=== PATIENT | female | born 1975 | race Hispanic/Latino ===

== ENCOUNTER → 2018-01-17 | Day surgery (SDC) | payer OTHER ==
[~2018-01-17] VITALS: Ht 165.1 cm; Wt 70.8 kg
--- NOTE | 2018-01-17 17:33 | Operative Report ---
Operative/Inv Procedure Report Surgery Date: 01/17/18 Name of Procedure: right ESWL Pre-Operative Diagnosis: right renal stone 5mm Post-Operative Diagnosis: same Estimated Blood Loss: scant Surgeon/T Rail Turner: Juliette Sebastian MD Anesthesia: local monitored anesthesi Complications: none Condition: stable Operative Indication: renal colic from 5mm right kidney stone Operative/Procedure Note Note: 42yo female with a hx of kidney stones. She has been having bothersome right renal colic. She wished to have the stone addressed with ESWL and not URS with laser lithotripsy. She was consented for right ESWL for the renal stone. She was given the risks, benefits and alternatives. All questions were answered. Pt was brought to the operating room and placed in the supine position. She was optimally positioned after time out was performed. She was given IV antibiotics. The shockwaves were started at 1-17 power for 250 shocks, then power 18-19 for 250 shocks, and finally at power of 17 for 2000 shocks. She tolerated the procedure well. The stone was seen to be somewhat visibly changed on US. No flouroscopy was used. Patient was transferred to the recovery room in stable condition.
== END ==
LOC: STS 02:53
DX: N20.0 Calculus of kidney (principal); Z87.442 Personal history of urinary calculi; E11.9 Type 2 diabetes mellitus without complications; Z79.4 Long term (current) use of insulin
CPT/HCPCS: 81025; J0690; J2250